=== PATIENT | female | born 1970 | race Caucasian/White ===

== ENCOUNTER 2024-04-18 20:38 | Emergency (ER) | payer SELFPAY ==
[~2024-04-18] VITALS: Ht 160 cm; Wt 75.0 kg
[2024-04-18 20:48] VITALS: O2SAT 96
[2024-04-18 20:51] VITALS: BP 127/68; PULSE 101; RESP 16; TEMP 37.05852; O2SAT 96
== END 2024-04-18 22:56 | disposition home or self-care (01) ==
LOC: ER 20:38
DX: S61.211A Laceration without foreign body of left index finger without damage to nail, initial encounter (principal); Z88.5 Allergy status to narcotic agent; Z88.2 Allergy status to sulfonamides; Z98.890 Other specified postprocedural states; W26.0XXA Contact with knife, initial encounter; Y93.89 Activity, other specified; Y92.89 Other specified places as the place of occurrence of the external cause; Y99.8 Other external cause status
CPT/HCPCS: 12001; 99282; Z7610 ×2